=== PATIENT | male | born 1985 | race American Indian/Alaskan Native ===

== ENCOUNTER 2017-05-17 16:20 | Observation (INO) | payer SELFPAY ==
[2017-05-17 16:25] VITALS: BMI 27.1
[2017-05-17] MEDS ORDERED: Naloxone 0.4 mg/ml Inj (Adult) IVP ONE (16:30)
[2017-05-17] MEDS ORDERED: Naloxone 0.4 mg/ml Inj (Adult) ONE (16:31)
[2017-05-17 16:49] LABS: BASO # 0.1 K/uL (0.0-0.2); BASO % 1.3 % (0.0-2.0); EOS # 0.1 K/uL (0.0-0.7); EOS % 1.5 % (0.0-4.0); HEMATOCRIT 39.1 % (35.0-51.0); LYMPH # 3.2 K/uL (1.0-4.3); LYMPH % 41.1 % (20.0-40.0); MEAN CELL VOLUME 96.5 fL (80.0-94.0); MEAN CORPUSCULAR HEMOGLOBIN 32.3 pg (27.0-31.0); MEAN CORPUSCULAR HGB CONC 33.5 g/dL (33.0-37.0); MEAN PLATELET VOLUME 6.6 fL (7.2-11.7); MONO # 0.4 K/uL (0.0-0.8); MONO % 5.6 % (0.0-10.0); NRBC % 0.1 % (0.0-2.0); RED CELL DISTRIBUTION WIDTH 14.3 % (11.5-14.5); WHITE BLOOD COUNT 7.9 K/uL (4.8-10.8)
[2017-05-17 16:51] LABS: RBC URINE < 1 /hpf (0-3); URINE BILIRUBIN NEGATIVE (NEGATIVE); URINE BLOOD NEGATIVE (NEGATIVE); URINE COLOR Straw (YELLOW); URINE GLUCOSE (UA) NORMAL (Normal); URINE KETONE NEGATIVE (NEGATIVE); URINE LEUKOCYTE ESTERASE NEG Leu/uL (Negative); URINE PROTEIN NEGATIVE (NEGATIVE); URINE UROBILINOGEN NORMAL mg/dL (0.2-1.0); WBC URINE < 1 /hpf (0-5)
[2017-05-17] MEDS ORDERED: Sodium Chloride 0.9% 1,000 ML IV ONE (16:55)
[2017-05-17 17:03] LABS: CHLORIDE 106 mmol/L (98-107)
[2017-05-17 17:04] LABS: POTASSIUM 4.1 mmol/L (3.6-5.2); SODIUM 145 mmol/L (132-148)
[2017-05-17 17:06] LABS: ALB/GLOB RATIO 1.2 (1.0-2.1); ALKALINE PHOSPHATASE 55 U/L (38-126); AST/SGOT 38 U/L (17-59); BILIRUBIN,TOTAL 0.4 mg/dL (0.2-1.3); BLOOD UREA NITROGEN 11 mg/dL (9-20); CARBON DIOXIDE 19 mmol/L (22-30); GFR AFRICAN-AMERICAN > 60; TOTAL PROTEIN 7.8 g/dL (6.3-8.3)
[2017-05-17 17:07] LABS: ALT/SGPT 35 U/L (21-72); CALCIUM 8.6 mg/dl (8.6-10.4); GLUCOSE,RANDOM 96 mg/dL (75-110)
[2017-05-17 17:24] LABS: ALCOHOL SERUM 402 mg/dl (0-10)
[2017-05-17 18:29] VITALS: O2SAT 99
--- NOTE | 2017-05-17 18:52 | C.PDOC ---
History Of Present Illness 32 year old male was brought to the ED by EMS after being found publicly intoxicated. Patient was given Narcan, 1.8 mg IV with transient improvement to mental status. It is unknown whether the patient uses heroin. He denies any physical complaints, suicidal, or homicidal ideations. Time Seen by Provider: 05/17/17 16:24 Chief Complaint (Nursing): Substance Abuse History Per: Patient, EMS History/Exam Limitations: no limitations Onset/Duration Of Symptoms: Hrs Current Symptoms Are (Timing): Still Present Suicide/Self Injury Attempted (Context): None Modifying Factor(s): Alcohol Severity: None Pain Scale Rating Of: 0 Associated Symptoms: denies: Suicidal Thoughts, Suicidal Plan Involuntary Hold By: None Recent travel outside of the [place]: No Past Medical History Reviewed: Historical Data, Nursing Documentation, Vital Signs Vital Signs: Last Vital Signs Temp 98.4 F 05/17/17 20:14 Pulse 92 H 05/17/17 21:41 Resp 18 05/17/17 21:41 BP 102/64 05/17/17 21:41 Pulse Ox 99 05/17/17 21:41 Family History: States: Unknown Family Hx - Social History Hx Alcohol Use: No (uto) Hx Substance Use: Yes (uto) - Immunization History Hx Tetanus Toxoid Vaccination: No Hx Influenza Vaccination: No Hx Pneumococcal Vaccination: No Review Of Systems Constitutional: Negative for: Fever, Chills Cardiovascular: Negative for: Chest Pain, Palpitations Respiratory: Negative for: Cough, Shortness of Breath Gastrointestinal: Negative for: Nausea, Vomiting, Abdominal Pain, Diarrhea Psych: Negative for: Suicidal ideation Physical Exam - Physical Exam Appears: Non-toxic, No Acute Distress, Other (EtOH on breath ) Skin: Warm, Dry Head: Atraumatic, Normacephalic Eye(s): bilateral: Other (pin point pupils and disconjugate gaze ) Oral Mucosa: Moist Neck: Supple Chest: Symmetrical, No Deformity Cardiovascular: Rhythm Regular, No Murmur Respiratory: Normal Breath Sounds, No Rales, No Rhonchi, No Wheezing Gastrointestinal/Abdominal: Soft, No Tenderness, No Distention, No Guarding, No Rebound Extremity: Normal ROM, No Tenderness Neurological/Psych: Oriented x3 Gait: Steady ED Course And Treatment - Laboratory Results Result Diagrams: 05/17/17 16:43 05/17/17 16:43 Lab Interpretation: Abnormal (tox -, etoh 402H) ECG: Interpreted By Me ECG Rhythm: Sinus Rhythm ECG Interpretation: Normal, Abnormal Rate From EC O2 Sat by Pulse Oximetry: 99 (RA) Pulse Ox Interpretation: Normal Progress Note: 20:00 patient is easily arousable and conversant. 2100: clinically sober, wants d/c to street now. Reevaluation Time: 18:53 Reassessment Condition: Improved (improved MS, keep on monitors, conversational but hypersomnolent) Medical Decision Making Medical Decision Making: alcohol abuse ? underlying other substances of abuse as he was improved with narcan, but 7- item tox neg. 2100: clinically sober, ok for d/c. Disposition Doctor Will See Patient In The: Office Counseled Patient/Family Regarding: Studies Performed, Diagnosis - Disposition Disposition: HOME/ ROUTINE Disposition Time: 20:59 Condition: GOOD - Clinical Impression Clinical Impression: Alcohol abuse - Scribe Statement The provider has reviewed the documentation as recorded by the Scribe Miryam Cyr All medical record entries made by the Skylaribcari were at my direction and personally dictated by me. I have reviewed the chart and agree that the record accurately reflects my personal performance of the history, physical exam, medical decision making, and the department course for this patient. I have also personally directed, reviewed, and agree with the discharge instructions and disposition.
[2017-05-18 00:51] VITALS: BP 107/71; PULSE 81; RESP 16; TEMP 98
== END 2017-05-17 20:58 | disposition home or self-care (01) ==
LOC: C.ER 16:20 → C.9OBSV 19:03
PROVIDERS: ADMIT Internal Medicine; ATTEND Internal Medicine
DX: F10.120 Alcohol abuse with intoxication, uncomplicated (principal); Y90.8 Blood alcohol level of 240 mg/100 ml or more
CPT/HCPCS: 80053; 81001; 82948; 85025; 96360; 96374; 99285; G0378; G0480; J2310; J7040